=== PATIENT | male | born 1980 | race Asian ===

== ENCOUNTER 2020-07-18 14:01 | Outpatient (CLI) | payer BC ==
[2020-07-18 14:10] LABS: PLATELET COUNT 626 K/uL (142-355)
[2020-07-18 14:12] LABS: POTASSIUM 4.3 mmol/L (3.6-5.2)
== END 2020-07-18 21:58 | disposition home or self-care (01) ==
LOC: LAB 14:01
PROVIDERS: ATTEND Nurse Practitioner Family
DX: T84.53XD Infection and inflammatory reaction due to internal right knee prosthesis, subsequent encounter (principal)
CPT/HCPCS: 80048; 85027; 85652; 86140

== ENCOUNTER 2020-07-21 11:19 | Outpatient (CLI) | payer BC ==
[2020-07-21 11:34] LABS: PLATELET COUNT 542 K/uL (142-355)
[2020-07-21 11:46] LABS: POTASSIUM 3.7 mmol/L (3.6-5.2)
== END 2020-07-21 23:59 | disposition home or self-care (01) ==
LOC: LAB 11:19
PROVIDERS: ATTEND Nurse Practitioner Family
DX: T84.53XD Infection and inflammatory reaction due to internal right knee prosthesis, subsequent encounter (principal); Z45.2 Encounter for adjustment and management of vascular access device; Z79.2 Long term (current) use of antibiotics
CPT/HCPCS: 80048; 85027; 85652; 86140

== ENCOUNTER 2020-07-24 12:10 | Outpatient (CLI) | payer BC ==
[2020-07-24 12:57] LABS: POTASSIUM 3.8 mmol/L (3.6-5.2)
[2020-07-24 13:12] LABS: PLATELET COUNT 483 K/uL (142-355)
== END 2020-07-24 19:23 | disposition home or self-care (01) ==
LOC: LAB 12:10
PROVIDERS: ATTEND Orthopaedic Surgery
DX: T84.53XD Infection and inflammatory reaction due to internal right knee prosthesis, subsequent encounter (principal); Z45.2 Encounter for adjustment and management of vascular access device; Z79.2 Long term (current) use of antibiotics
CPT/HCPCS: 80048; 85027; 85652; 86140

== ENCOUNTER 2020-07-27 12:05 | Outpatient (CLI) | payer BC ==
[2020-07-27 12:37] LABS: PLATELET COUNT 421 K/uL (142-355)
== END 2020-07-27 20:45 | disposition home or self-care (01) ==
LOC: LAB 12:05
PROVIDERS: ATTEND Orthopaedic Surgery
DX: T84.53XD Infection and inflammatory reaction due to internal right knee prosthesis, subsequent encounter (principal); Z45.2 Encounter for adjustment and management of vascular access device; Z79.2 Long term (current) use of antibiotics
CPT/HCPCS: 80048; 85027; 85652; 86140

== ENCOUNTER 2020-07-30 14:43 | Outpatient (CLI) | payer BC ==
[2020-07-30 15:08] LABS: POTASSIUM 3.9 mmol/L (3.6-5.2)
[2020-07-30 16:10] LABS: PLATELET COUNT 338 K/uL (142-355)
== END 2020-07-30 19:27 | disposition home or self-care (01) ==
LOC: LAB 14:43
PROVIDERS: ATTEND Orthopaedic Surgery
DX: T84.53XD Infection and inflammatory reaction due to internal right knee prosthesis, subsequent encounter (principal); Z45.2 Encounter for adjustment and management of vascular access device; Z79.2 Long term (current) use of antibiotics
CPT/HCPCS: 80048; 85027; 86140

== ENCOUNTER 2020-08-07 10:56 | Outpatient (CLI) | payer BC ==
[2020-08-07 11:07] LABS: PLATELET COUNT 332 K/uL (142-355)
[2020-08-07 11:16] LABS: POTASSIUM 3.7 mmol/L (3.6-5.2)
== END 2020-08-07 19:18 | disposition home or self-care (01) ==
LOC: LAB 10:56
PROVIDERS: ATTEND Orthopaedic Surgery
DX: T84.53XD Infection and inflammatory reaction due to internal right knee prosthesis, subsequent encounter (principal); Z45.2 Encounter for adjustment and management of vascular access device; Z79.2 Long term (current) use of antibiotics
CPT/HCPCS: 80048; 85027; 85652; 86140

== ENCOUNTER 2020-08-14 11:36 | Outpatient (CLI) | payer BC ==
[2020-08-14 12:17] LABS: PLATELET COUNT 352 K/uL (142-355)
[2020-08-14 12:23] LABS: POTASSIUM 3.5 mmol/L (3.6-5.2)
== END 2020-08-14 22:44 | disposition home or self-care (01) ==
LOC: LAB 11:36
PROVIDERS: ATTEND Orthopaedic Surgery
DX: T84.53XD Infection and inflammatory reaction due to internal right knee prosthesis, subsequent encounter (principal); Z45.2 Encounter for adjustment and management of vascular access device; Z79.2 Long term (current) use of antibiotics
CPT/HCPCS: 80048; 85027; 85652; 86140

== ENCOUNTER 2020-08-24 13:59 | Outpatient (CLI) | payer BC ==
[2020-08-24 14:41] LABS: PLATELET COUNT 438 K/uL (142-355)
== END 2020-08-24 23:14 | disposition home or self-care (01) ==
LOC: LABW 13:59
PROVIDERS: ATTEND Orthopaedic Surgery
DX: M25.561 Pain in right knee (principal)
CPT/HCPCS: 36415; 85027; 85652; 86140

== ENCOUNTER 2020-09-14 13:43 | Outpatient (CLI) | payer OTHER ==
[2020-09-14 14:24] LABS: PLATELET COUNT 379 K/uL (142-355)
[2020-09-14 14:36] LABS: POTASSIUM 3.8 mmol/L (3.6-5.2)
== END 2020-09-14 21:46 | disposition home or self-care (01) ==
LOC: LAB 13:43
PROVIDERS: ATTEND Internal Medicine
DX: T84.53XD Infection and inflammatory reaction due to internal right knee prosthesis, subsequent encounter (principal); M25.561 Pain in right knee
CPT/HCPCS: 80048; 85027; 85652; 86140

== ENCOUNTER 2020-09-18 12:11 | Outpatient (CLI) | payer OTHER ==
[2020-09-18 13:07] LABS: PLATELET COUNT 484 K/uL (142-355)
[2020-09-18 13:12] LABS: POTASSIUM 4.1 mmol/L (3.6-5.2)
== END 2020-09-18 22:14 | disposition home or self-care (01) ==
LOC: LAB 12:11
PROVIDERS: ATTEND Internal Medicine
DX: M25.561 Pain in right knee (principal)
CPT/HCPCS: 80048; 85027; 85652; 86140

== ENCOUNTER 2020-09-25 14:31 | Outpatient (CLI) | payer OTHER ==
[2020-09-25 14:48] LABS: PLATELET COUNT 524 K/uL (142-355)
[2020-09-25 15:03] LABS: POTASSIUM 3.9 mmol/L (3.6-5.2)
== END 2020-09-25 20:58 | disposition home or self-care (01) ==
LOC: LAB 14:31
PROVIDERS: ATTEND Internal Medicine
DX: T84.53XD Infection and inflammatory reaction due to internal right knee prosthesis, subsequent encounter (principal); M25.561 Pain in right knee
CPT/HCPCS: 80048; 85027; 85652; 86140

== ENCOUNTER 2020-10-02 13:10 | Outpatient (CLI) | payer OTHER ==
[2020-10-02 13:56] LABS: PLATELET COUNT 421 K/uL (142-355)
== END 2020-10-02 21:39 | disposition home or self-care (01) ==
LOC: LAB 13:10
PROVIDERS: ATTEND Internal Medicine
DX: T84.53XD Infection and inflammatory reaction due to internal right knee prosthesis, subsequent encounter (principal); M25.561 Pain in right knee
CPT/HCPCS: 80048; 85027; 85652; 86140

== ENCOUNTER 2020-10-09 13:27 | Outpatient (CLI) | payer OTHER ==
[2020-10-09 14:07] LABS: POTASSIUM 4.2 mmol/L (3.6-5.2)
[2020-10-09 14:13] LABS: PLATELET COUNT 341 K/uL (142-355)
== END 2020-10-09 19:26 | disposition home or self-care (01) ==
LOC: LAB 13:27
PROVIDERS: ATTEND Internal Medicine
DX: T84.53XD Infection and inflammatory reaction due to internal right knee prosthesis, subsequent encounter (principal); M25.561 Pain in right knee
CPT/HCPCS: 80048; 85027; 85652; 86140

== ENCOUNTER 2020-10-17 13:45 | Outpatient (CLI) | payer OTHER ==
[2020-10-17 14:07] LABS: PLATELET COUNT 342 K/uL (142-355)
== END 2020-10-17 21:12 | disposition home or self-care (01) ==
LOC: LAB 13:45
PROVIDERS: ATTEND Internal Medicine
DX: T84.53XD Infection and inflammatory reaction due to internal right knee prosthesis, subsequent encounter (principal); M25.561 Pain in right knee
CPT/HCPCS: 80048; 85027; 85652; 86140

== ENCOUNTER 2020-10-23 14:27 | Outpatient (CLI) | payer OTHER ==
[2020-10-23 14:42] LABS: PLATELET COUNT 440 K/uL (142-355)
[2020-10-23 14:48] LABS: POTASSIUM 3.5 mmol/L (3.6-5.2)
== END 2020-10-23 19:56 | disposition home or self-care (01) ==
LOC: LAB 14:27
PROVIDERS: ATTEND Internal Medicine
DX: M25.561 Pain in right knee (principal)
CPT/HCPCS: 80048; 85027; 85652; 86140

== ENCOUNTER 2020-10-30 14:40 | Outpatient (CLI) | payer OTHER ==
[2020-10-30 14:58] LABS: PLATELET COUNT 405 K/uL (142-355)
[2020-10-30 15:08] LABS: POTASSIUM 3.1 mmol/L (3.6-5.2)
== END 2020-10-30 22:31 | disposition home or self-care (01) ==
LOC: LAB 14:40
PROVIDERS: ATTEND Internal Medicine
DX: T84.53XD Infection and inflammatory reaction due to internal right knee prosthesis, subsequent encounter (principal); E66.01 Morbid (severe) obesity due to excess calories; Z45.2 Encounter for adjustment and management of vascular access device; Z79.2 Long term (current) use of antibiotics
CPT/HCPCS: 80048; 85027; 85652; 86140

== ENCOUNTER 2020-11-06 13:37 | Outpatient (CLI) | payer OTHER ==
[2020-11-06 13:51] LABS: PLATELET COUNT 350 K/uL (142-355)
[2020-11-06 13:55] LABS: POTASSIUM 3.7 mmol/L (3.6-5.2)
== END 2020-11-06 19:40 | disposition home or self-care (01) ==
LOC: LAB 13:37
PROVIDERS: ATTEND Internal Medicine
DX: T84.53XD Infection and inflammatory reaction due to internal right knee prosthesis, subsequent encounter (principal); M25.561 Pain in right knee
CPT/HCPCS: 80048; 85027; 85652; 86140

== ENCOUNTER 2020-11-13 13:26 | Outpatient (CLI) | payer OTHER ==
[2020-11-13 13:39] LABS: PLATELET COUNT 297 K/uL (142-355)
== END 2020-11-13 23:43 | disposition home or self-care (01) ==
LOC: LAB 13:26
PROVIDERS: ATTEND Internal Medicine
DX: M25.561 Pain in right knee (principal); Z79.2 Long term (current) use of antibiotics
CPT/HCPCS: 80048; 85027; 85652; 86140

== ENCOUNTER 2020-11-30 14:05 | Outpatient (CLI) | payer OTHER ==
[2020-11-30 14:35] LABS: POTASSIUM 3.8 mmol/L (3.6-5.2)
[2020-11-30 14:39] LABS: PLATELET COUNT 370 K/uL (142-355)
== END 2020-11-30 22:00 | disposition home or self-care (01) ==
LOC: LAB 14:05
PROVIDERS: ATTEND Internal Medicine
DX: M25.561 Pain in right knee (principal)
CPT/HCPCS: 80048; 85027; 85652; 86140